=== PATIENT | male | born 1975 | race African-American/Black ===

== ENCOUNTER 2017-06-09 11:33 | Emergency (ER) | payer OTHER, MEDICAID, SELFPAY | END 2017-06-09 16:20 | disposition home or self-care (01) | PROVIDERS: Emergency Provider Internal Medicine; PCP Nurse Practitioner Gerontology; Visit Provider Internal Medicine | DX: K29.50 Unspecified chronic gastritis without bleeding (principal); K21.9 Gastro-esophageal reflux disease without esophagitis; R06.6 Hiccough | CPT/HCPCS: 76700; 80053; 81003; 83690; 85025; 96361; 96374; 96375; 99058; 99285; C9113; J2405; J2765 ==

== ENCOUNTER 2018-05-22 19:59 | Emergency (ER) | payer OTHER, MEDICAID, SELFPAY ==
[2018-05-22 20:09] VITALS: BP 162/115; PULSE 95; RESP 16; TEMP 36.9; O2SAT 97; BMI 28.7
--- NOTE | 2018-05-22 20:12 | ED.NAVMDI ---
HPI - Nausea/Vomiting/Diarrhea <Brisa Salinas PA-C - Last Filed: 05/22/18 22:27> General Chief complaint: Nausea/Vomiting/Diarrhea Stated complaint: UNABLE TO HOLD ANYTHING DOWN' Time Seen by Provider: 05/22/18 20:05 Source: patient Mode of arrival: ambulatory Limitations: no limitations History of Present Illness HPI Narrative: This 43-year-old male comes to ED secondary to recurrent intractable hiccuping and vomiting. He states that this started at 4:00 a.m. today and he has been unable to keep down food or fluids. He was seen here for this about a year ago and states this is similar to his previous recurrent episodes. He is not having any abdominal pain. He denies any fever. He does not have chest pain or dyspnea. Since I saw him here last, he states he did see the panelbeater as planned and was told his symptoms were due to acid reflux and was put on ranitidine. He thinks that might have helped for a time however has run out of it and never refilled it. He does continue to use THC, last on Friday. He notes that he was seen at another local emergency room on Friday due to a spider bite on his right arm. He was called on Friday and told apparently that he had a positive blood culture and his antibiotic was changed (he was initially prescribed cephalexin and clindamycin, then picked up a new prescription on Friday for Bactrim, but never stopped the other to. He does not think clearly that any of these have caused upset stomach. Unable to populate past medical and surgical history in the EMR. Past medical history positive for diagnoses of GERD, HTN, intractable hiccups and vomiting that are recurrent, cyclic vomiting syndrome, appendectomy Related Data Previous Rx's Medication Instructions Recorded omeprazole magnesium [Prilosec OTC] 20 mg PO BID #30 tab 06/09/17 ondansetron [Zofran ODT] 4 mg SUBLINGUAL Q6HP PRN #10 odt 06/09/17 ondansetron 4 mg PO Q6-8H PRN #10 tab 05/23/18 Allergies Allergy/AdvReac Type Severity Reaction Status Date / Time No Known Drug Allergies Allergy Verified 05/22/18 20:09 Review of Systems <Brisa Salinas PA-C - Last Filed: 05/22/18 22:27> Review of Systems ROS Unobtainable: All systems reviewed & are unremarkable except as noted in HPI and below PFSH <Brisa Salinas PA-C - Last Filed: 05/22/18 22:27> Comment: +THC Exam <Brisa Salinas PA-C - Last Filed: 05/22/18 22:27> Narrative Exam Narrative: GENERAL APPEARANCE: Patient initially sitting comfortably, but intermittently hiccuping and dry heaving HEENT: PERRL, EOMI, no scleral icterus, normal oropharynx NECK: Supple, no masses LUNGS: Clear to auscultation bilaterally. HEART: Rate and rhythm regular, normal S1 and S2, no S3 or S4. ABDOMEN: Soft, nontender, nondistended, bowel sounds present x 4 quadrants, no masses palpable, no hepatosplenomegaly. EXTREMITIES: No edema DERMATOLOGIC: No jaundice or exanthem. On the right arm there is a somewhat irregular wound that has pink granulation tissue centrally, no drainage, normal surrounding skin NEUROLOGIC: Alert and oriented with normal speech and coordination Initial Vital Signs Initial Vital Signs: Vital Signs Temperature 98.5 F 05/22/18 20:09 Pulse Rate 95 H 05/22/18 20:09 Respiratory Rate 16 05/22/18 20:09 Blood Pressure 162/115 H 05/22/18 20:09 Pulse Oximetry 97 05/22/18 20:09 <Rakel Chaney DO - Last Filed: 05/23/18 04:44> Initial Vital Signs Initial Vital Signs: Vital Signs Temperature 98.5 F 05/22/18 20:09 Pulse Rate 95 H 05/22/18 20:09 Respiratory Rate 16 05/22/18 20:09 Blood Pressure 162/115 H 05/22/18 20:09 Pulse Oximetry 97 05/22/18 20:09 Course <TORY Addison Last Filed: 05/22/18 22:27> Additional Information: After Reglan was given patient stopped retching and hiccuping and has been sleeping during the remainder of his course in the ED. We did receive some records from [facility] and it looks like he had an abscess on the forearm that was previously drained, treated for cellulitis there. His wound culture was positive for MRSA, susceptible to clindamycin and cephalexin. He does have an elevated lactate level however no blood work was included with previous records for reference. He does not appear toxic and his symptoms today are very consistent with his previous history. Since he is sleeping comfortably will continue fluids and plan is to recheck a lactate level following. Signed out to Dr. Chaney who will monitor and order repeat labwork Orders Ordered: ED Orders 05/22/18 20:45 Complete Blood Count AUTO DIFF Stat Comprehensive Metabolic Panel Stat Lactate (Lactic Acid) Stat Lipase Stat 05/22/18 23:00 Lactate 2HR (Lactic Acid Rflx) Stat Discontinued Medications Al Hydrox/Mg Hydrox/Simethicone 20 ml/ Lidocaine HCl 15 ml 0 ml PO NOW ONE Stop: 05/23/18 00:03 Last Admin: 05/23/18 00:26 Dose: 35 ml Diphenhydramine HCl (Benadryl) 25 mg IV NOW ONE Stop: 05/22/18 22:40 Last Admin: 05/22/18 23:07 Dose: Not Given Hydroxyzine HCl (Vistaril) 50 mg IM NOW ONE Stop: 05/23/18 00:49 Last Admin: 05/23/18 01:17 Dose: 50 mg Sodium Chloride (Normal Saline 0.9%) 1,000 mls @ 1,000 mls/hr IV BOLUS ONE Stop: 05/22/18 21:25 Last Infusion: 05/22/18 22:09 Dose: 0 mls/hr Admin: 05/22/18 20:49 Dose: 1,000 mls/hr Sodium Chloride (Normal Saline 0.9%) 1,000 mls @ 1,000 mls/hr IV BOLUS ONE Stop: 05/22/18 22:31 Last Infusion: 05/22/18 23:12 Dose: 0 mls/hr Admin: 05/22/18 21:45 Dose: 1,000 mls/hr Sodium Chloride (Normal Saline 0.9%) 1,000 mls @ 1,000 mls/hr IV BOLUS ONE Stop: 05/23/18 01:00 Last Infusion: 05/23/18 01:52 Dose: 0 mls/hr Admin: 05/23/18 00:26 Dose: 1,000 mls/hr Lorazepam (Ativan) 1 mg IV NOW ONE Stop: 05/22/18 22:41 Last Admin: 05/22/18 22:49 Dose: 1 mg Lorazepam (Ativan) 1 mg IV NOW ONE Stop: 05/23/18 00:03 Last Admin: 05/23/18 00:27 Dose: 1 mg Metoclopramide HCl (Reglan) 10 mg IV NOW ONE Stop: 05/22/18 20:27 Last Admin: 05/22/18 20:49 Dose: 10 mg Ondansetron HCl (Zofran Odt Prepack) 1 bottle MISC SEEINSTR ONE Stop: 05/23/18 01:41 Last Admin: 05/23/18 01:44 Dose: 1 bottle Pantoprazole Sodium (Protonix) 40 mg IV NOW ONE Stop: 05/22/18 20:27 Last Admin: 05/22/18 20:49 Dose: 40 mg Vital Signs - 8 hr 05/22/18 21:38 05/23/18 01:54 Temperature 99 F Pulse Rate 79 92 H Respiratory Rate 16 15 Blood Pressure 156/104 H Blood Pressure [Right Arm] 152/85 H Pulse Oximetry 100 98 <Rakel Chaney DO - Last Filed: 05/23/18 04:44> Orders Ordered: ED Orders 05/22/18 20:45 Complete Blood Count AUTO DIFF Stat Comprehensive Metabolic Panel Stat Lactate (Lactic Acid) Stat Lipase Stat 05/22/18 23:00 Lactate 2HR (Lactic Acid Rflx) Stat Discontinued Medications Al Hydrox/Mg Hydrox/Simethicone 20 ml/ Lidocaine HCl 15 ml 0 ml PO NOW ONE Stop: 05/23/18 00:03 Last Admin: 05/23/18 00:26 Dose: 35 ml Diphenhydramine HCl (Benadryl) 25 mg IV NOW ONE Stop: 05/22/18 22:40 Last Admin: 05/22/18 23:07 Dose: Not Given Hydroxyzine HCl (Vistaril) 50 mg IM NOW ONE Stop: 05/23/18 00:49 Last Admin: 05/23/18 01:17 Dose: 50 mg Sodium Chloride (Normal Saline 0.9%) 1,000 mls @ 1,000 mls/hr IV BOLUS ONE Stop: 05/22/18 21:25 Last Infusion: 05/22/18 22:09 Dose: 0 mls/hr Admin: 05/22/18 20:49 Dose: 1,000 mls/hr Sodium Chloride (Normal Saline 0.9%) 1,000 mls @ 1,000 mls/hr IV BOLUS ONE Stop: 05/22/18 22:31 Last Infusion: 05/22/18 23:12 Dose: 0 mls/hr Admin: 05/22/18 21:45 Dose: 1,000 mls/hr Sodium Chloride (Normal Saline 0.9%) 1,000 mls @ 1,000 mls/hr IV BOLUS ONE Stop: 05/23/18 01:00 Last Infusion: 05/23/18 01:52 Dose: 0 mls/hr Admin: 05/23/18 00:26 Dose: 1,000 mls/hr Lorazepam (Ativan) 1 mg IV NOW ONE Stop: 05/22/18 22:41 Last Admin: 05/22/18 22:49 Dose: 1 mg Lorazepam (Ativan) 1 mg IV NOW ONE Stop: 05/23/18 00:03 Last Admin: 05/23/18 00:27 Dose: 1 mg Metoclopramide HCl (Reglan) 10 mg IV NOW ONE Stop: 05/22/18 20:27 Last Admin: 05/22/18 20:49 Dose: 10 mg Ondansetron HCl (Zofran Odt Prepack) 1 bottle MISC SEEINSTR ONE Stop: 05/23/18 01:41 Last Admin: 05/23/18 01:44 Dose: 1 bottle Pantoprazole Sodium (Protonix) 40 mg IV NOW ONE Stop: 05/22/18 20:27 Last Admin: 05/22/18 20:49 Dose: 40 mg Reevaluation(s) Reevaluation #1: The patient signed out to me by MAURICIO Salinas. I have done independent examined seen evaluated patient myself. He continues to be dry heaving. History of cyclic vomiting will give Ativan. Time: 23:00 Reevaluation #2: Patient is sleeping still vomiting Time: 00:30 Reevaluation #3: Patient awake able to tolerate some p.o. fluids feels ready and able to go home. While sleeping he has hiccups but abdomen remains soft. At this time no need for imaging. Patient has not been vomiting for some time. Discussed with significant other oral rehydration techniques She had a 3rd bag of IV fluids his lactic acid is decreasing and he is much calmer than previously. Time: 01:50 Vital Signs - 8 hr 05/22/18 21:38 05/23/18 01:54 Temperature 99 F Pulse Rate 79 92 H Respiratory Rate 16 15 Blood Pressure 156/104 H Blood Pressure [Right Arm] 152/85 H Pulse Oximetry 100 98 MDM - Nausea/Vomiting/Diarrhea <Brisa Salinas PA-C - Last Filed: 05/22/18 22:27> Lab Data Result diagrams: 05/22/18 20:45 05/22/18 20:45 Lab Results 05/22/18 05/22/18 05/22/18 Range/Units 20:45 20:45 20:45 WBC 11.6 H (4.5-11.0) X10^3/uL RBC 4.56 (4.5-5.9) X10^6/uL Hgb 14.1 (13.5-17.5) g/dL Hct 42.4 (41-53) % MCV 93.0 (80-100) fL MCH 30.9 (26-34) PG MCHC 33.3 (30-36) % RDW 14.0 (11.6-14.8) % Plt Count 267 (150-400) X10^3/uL Neut % (Auto) 93.7 H (50-75) % Lymph % (Auto) 4.3 L (25-40) % [place] % (Auto) 1.6 L (3-14) % Eos % (Auto) 0.0 L (2-4) % Baso % (Auto) 0.4 (0-2) % Neut # (Auto) 86478 H (4485-2811) /uL Lymph # (Auto) 500 L (9877-1259) /uL [place] # (Auto) 200 (0-900) /uL Eos # (Auto) 0 (0-450) /uL Baso # (Auto) 0 (0-100) /uL Sodium 142 (137-145) mmol/L Potassium 4.1 (3.4-5.1) mmol/L Chloride 107 (98-107) mmol/L Carbon Dioxide 20 L (22-32) mmol/L BUN 15 (9-20) mg/dL Creatinine 1.00 (0.66-1.25) mg/dL Estimated GFR > 60.0 (>60) mL/min BUN/Creatinine Ratio 15.0 (6-22) Glucose 139 H (70-100) mg/dL Lactate 4.3 H (0.7-2.1) mmol/L Calcium 10.0 (8.4-10.2) mg/dL Total Bilirubin 0.6 (0.2-1.3) mg/dL AST 26 (17-59) IU/L ALT 21 (21-72) IU/L Alkaline Phosphatase 94 (38-126) U/L Total Protein 8.8 H (6.3-8.2) g/dL Albumin 4.9 (3.5-5.0) g/dL Globulin 3.9 (1.7-4.1) g/dL Albumin/Globulin Ratio 1.3 (1.0-2.8) Lipase 52 (23-300) U/L 05/22/18 Range/Units 23:00 WBC (4.5-11.0) X10^3/uL RBC (4.5-5.9) X10^6/uL Hgb (13.5-17.5) g/dL Hct (41-53) % MCV (80-100) fL MCH (26-34) PG MCHC (30-36) % RDW (11.6-14.8) % Plt Count (150-400) X10^3/uL Neut % (Auto) (50-75) % Lymph % (Auto) (25-40) % [place] % (Auto) (3-14) % Eos % (Auto) (2-4) % Baso % (Auto) (0-2) % Neut # (Auto) (4308-6159) /uL Lymph # (Auto) (2613-5459) /uL [place] # (Auto) (0-900) /uL Eos # (Auto) (0-450) /uL Baso # (Auto) (0-100) /uL Sodium (137-145) mmol/L Potassium (3.4-5.1) mmol/L Chloride (98-107) mmol/L Carbon Dioxide (22-32) mmol/L BUN (9-20) mg/dL Creatinine (0.66-1.25) mg/dL Estimated GFR (>60) mL/min BUN/Creatinine Ratio (6-22) Glucose (70-100) mg/dL Lactate 3.7 H (0.7-2.1) mmol/L Calcium (8.4-10.2) mg/dL Total Bilirubin (0.2-1.3) mg/dL AST (17-59) IU/L ALT (21-72) IU/L Alkaline Phosphatase (38-126) U/L Total Protein (6.3-8.2) g/dL Albumin (3.5-5.0) g/dL Globulin (1.7-4.1) g/dL Albumin/Globulin Ratio (1.0-2.8) Lipase (23-300) U/L <Rakel Chaney, DO - Last Filed: 05/23/18 04:44> Lab Data Lab Results 05/22/18 05/22/18 05/22/18 Range/Units 20:45 20:45 20:45 WBC 11.6 H (4.5-11.0) X10^3/uL RBC 4.56 (4.5-5.9) X10^6/uL Hgb 14.1 (13.5-17.5) g/dL Hct 42.4 (41-53) % MCV 93.0 (80-100) fL MCH 30.9 (26-34) PG MCHC 33.3 (30-36) % RDW 14.0 (11.6-14.8) % Plt Count 267 (150-400) X10^3/uL Neut % (Auto) 93.7 H (50-75) % Lymph % (Auto) 4.3 L (25-40) % [place] % (Auto) 1.6 L (3-14) % Eos % (Auto) 0.0 L (2-4) % Baso % (Auto) 0.4 (0-2) % Neut # (Auto) 06205 H (9294-8189) /uL Lymph # (Auto) 500 L (1900-5201) /uL [place] # (Auto) 200 (0-900) /uL Eos # (Auto) 0 (0-450) /uL Baso # (Auto) 0 (0-100) /uL Sodium 142 (137-145) mmol/L Potassium 4.1 (3.4-5.1) mmol/L Chloride 107 (98-107) mmol/L Carbon Dioxide 20 L (22-32) mmol/L BUN 15 (9-20) mg/dL Creatinine 1.00 (0.66-1.25) mg/dL Estimated GFR > 60.0 (>60) mL/min BUN/Creatinine Ratio 15.0 (6-22) Glucose 139 H (70-100) mg/dL Lactate 4.3 H (0.7-2.1) mmol/L Calcium 10.0 (8.4-10.2) mg/dL Total Bilirubin 0.6 (0.2-1.3) mg/dL AST 26 (17-59) IU/L ALT 21 (21-72) IU/L Alkaline Phosphatase 94 (38-126) U/L Total Protein 8.8 H (6.3-8.2) g/dL Albumin 4.9 (3.5-5.0) g/dL Globulin 3.9 (1.7-4.1) g/dL Albumin/Globulin Ratio 1.3 (1.0-2.8) Lipase 52 (23-300) U/L 05/22/18 Range/Units 23:00 WBC (4.5-11.0) X10^3/uL RBC (4.5-5.9) X10^6/uL Hgb (13.5-17.5) g/dL Hct (41-53) % MCV (80-100) fL MCH (26-34) PG MCHC (30-36) % RDW (11.6-14.8) % Plt Count (150-400) X10^3/uL Neut % (Auto) (50-75) % Lymph % (Auto) (25-40) % [place] % (Auto) (3-14) % Eos % (Auto) (2-4) % Baso % (Auto) (0-2) % Neut # (Auto) (8622-7195) /uL Lymph # (Auto) (2579-3309) /uL [place] # (Auto) (0-900) /uL Eos # (Auto) (0-450) /uL Baso # (Auto) (0-100) /uL Sodium (137-145) mmol/L Potassium (3.4-5.1) mmol/L Chloride (98-107) mmol/L Carbon Dioxide (22-32) mmol/L BUN (9-20) mg/dL Creatinine (0.66-1.25) mg/dL Estimated GFR (>60) mL/min BUN/Creatinine Ratio (6-22) Glucose (70-100) mg/dL Lactate 3.7 H (0.7-2.1) mmol/L Calcium (8.4-10.2) mg/dL Total Bilirubin (0.2-1.3) mg/dL AST (17-59) IU/L ALT (21-72) IU/L Alkaline Phosphatase (38-126) U/L Total Protein (6.3-8.2) g/dL Albumin (3.5-5.0) g/dL Globulin (1.7-4.1) g/dL Albumin/Globulin Ratio (1.0-2.8) Lipase (23-300) U/L Discharge Plan Departure Patient Disposition: Home Clinical Impression: Cyclic vomiting syndrome Qualifiers: Vomiting Intractability: intractable Nausea presence: with nausea Qualified Code(s): G43.A1 - Cyclical vomiting, intractable Discharge Date/Time: 05/23/18 01:55 Interventions: ED Discharge Assessment Last Done: 05/23/18 01:54 Instructions: DI for Dehydration -- Adult, DI for Vomiting -- Child Activity Restrictions/Additional Instructions: 1) You have been diagnosed with cyclic vomiting 2) What to do: Drink frequent but small amounts of fluids. I recommend Gatorade or a Gatorade-like product, as it has small amounts of sugar and salts that improve fluid retention. 3) Take medications as directed Zofran 4 mg every 6-8 hours if needed for nausea or vomiting 4) Follow up with your primary care provider in 2-3 days 5) Return to ER if you should have any new or worsening symptoms such as, unable to hold down fluids despite use of anti-nausea medications and the small volume oral rehydration strategy. Prescriptions: New ondansetron 4 mg tablet,disintegrating 4 mg PO Q6-8H PRN (Reason: nausea and vomiting) Qty: 10 RF: 0 No Action ondansetron [Zofran ODT] 4 MG tablet,disintegrating 4 mg Sublingual Q6HP PRNQty: 10 RF: 0 omeprazole magnesium [Prilosec OTC] 20 MG tablet,delayed release (DR/EC) 20 mg PO BID Qty: 30 RF: 0 Referrals: Sade Dominguez ARNP [Primary Care Provider] - ED Cosign/Signout <Brisa Salinas PA-C - Last Filed: 05/22/18 22:27> Sign Out Provider Sign Out Attestation: After Reglan was given patient stopped retching and hiccuping and has been sleeping during the remainder of his course in the ED. We did receive some records from [facility] and it looks like he had an abscess on the forearm that was previously drained, treated for cellulitis there. His wound culture was positive for MRSA, susceptible to clindamycin and cephalexin. He does have an elevated lactate level however no blood work was included with previous records for reference. He does not appear toxic and his symptoms today are very consistent with his previous history. Since he is sleeping comfortably will continue fluids and plan is to recheck a lactate level following. Signed out to Dr. Chaney who will monitor and order repeat labwork and review discharge medications. <Rakel Chaney DO - Last Filed: 05/23/18 04:44> Cosign ED Attending Cosignature Attestation: I was immediately available in the department for consultation. Documentation has been reviewed. I agree with assessment and plan.
[2018-05-22] MEDS: PANTOPRAZOLE 40 MG VIAL IV (20:49)
[2018-05-22] MEDS: METOCLOPRAMIDE 10 MG/2 ML INJ IV (20:49)
[2018-05-22] MEDS: SODIUM CHLORIDE 0.9% 1,000 ML 1000 ML IV ×2 (20:49→21:45)
[2018-05-22 20:56] LABS: Add Manual Diff / Slide Review NO; Basophils Absolute Auto 0 /uL (0-100); Basophils Percent Auto 0.4 % (0-2); Eosinophils Absolute Auto 0 /uL (0-450); Hematocrit 42.4 % (41-53); Hemoglobin 14.1 g/dL (13.5-17.5); Lymphocytes Absolute Auto 500 /uL (1100-4500); Lymphocytes Percent Auto 4.3 % (25-40); Mean Corpuscular HGB Conc 33.3 % (30-36); Mean Corpuscular Hemoglobin 30.9 PG (26-34); Monocytes Absolute Auto 200 /uL (0-900); Monocytes Percent Auto 1.6 % (3-14); Neutrophils Absolute Auto 10800 /uL (1500-7000); Neutrophils Percent Auto 93.7 % (50-75); Platelet Count 267 X10^3/uL (150-400); Red Blood Cell Count 4.56 X10^6/uL (4.5-5.9); White Blood Cell Count 11.6 X10^3/uL (4.5-11.0)
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
[2018-05-22 21:07] LABS: Lactate (Lactic Acid) 4.3 mmol/L (0.7-2.1)
[2018-05-22 21:08] LABS: Alanine Aminotransferase 21 IU/L (21-72); Albumin 4.9 g/dL (3.5-5.0); Albumin Globulin Ratio 1.3 (1.0-2.8); Alkaline Phosphatase 94 U/L (38-126); Aspartate Aminotransferase 26 IU/L (17-59); Bilirubin Total 0.6 mg/dL (0.2-1.3); Blood Urea Nitrogen 15 mg/dL (9-20); Carbon Dioxide 20 mmol/L (22-32); Chloride 107 mmol/L (98-107); Estimated Glomerular Filt Rate > 60.0 mL/min (>60); Globulin 3.9 g/dL (1.7-4.1); Glucose 139 mg/dL (70-100); HEMOLYSIS < 15 (0-50); Lipase 52 U/L (23-300); Potassium 4.1 mmol/L (3.4-5.1); Sodium 142 mmol/L (137-145); Total Protein 8.8 g/dL (6.3-8.2)
[2018-05-22 21:38] VITALS: BP 152/85; PULSE 79; RESP 16; O2SAT 100
[2018-05-22] MEDS: LORazepam 2 MG/ML SYRINGE 1 MG IV (22:49)
[2018-05-22 22:50] LABS: Reflexed Lactate in 2 Hours Y
[2018-05-22 23:18] LABS: Lactate 2HR (Lactic Acid Rflx) 3.7 mmol/L (0.7-2.1)
[2018-05-23] MEDS: MAG HYDROX/ALUMINUM/SIMETH SUS 20 ML, LIDOCAINE VISCOUS 2% 15 ML PO (00:26)
[2018-05-23] MEDS: SODIUM CHLORIDE 0.9% 1,000 ML 1000 ML IV (00:26)
[2018-05-23] MEDS: LORazepam 2 MG/ML SYRINGE 1 MG IV (00:27)
[2018-05-23] MEDS: hydrOXYzine 50 MG/ML INJ IM (01:17)
[2018-05-23] MEDS: ONDANSETRON 4 MG ODT PREPACK 1 BOTTLE MISC (01:44)
[2018-05-23 01:54] VITALS: BP 156/104; PULSE 92; RESP 15; TEMP 37.2; O2SAT 98
== END 2018-05-23 01:55 | disposition home or self-care (01) ==
PROVIDERS: Internal Medicine; Emergency Provider Emergency Medicine; PCP Nurse Practitioner Gerontology
DX: G43.A1 Cyclical vomiting, in migraine, intractable (principal); R06.6 Hiccough
CPT/HCPCS: 36415; 36591; 80053; 83605; 83690; 85025; 96361; 96372; 96374; 96375; 96376; 99283; 99284; C9113; J2060; J2765; J3410